=== PATIENT | male | born 1960 | race Caucasian/White ===

== ENCOUNTER 2021-07-29 17:46 | Inpatient (IN) | payer OTHER ==
[~2021-07-29] VITALS: Ht 193 cm; Wt 109.3 kg
[2021-07-29 18:47] LABS: Basophils # (auto) 0 10 ^3/uL (0-0.2); Basophils % (auto) 0.4 % (0.0-2.0); Eosinophils # (auto) 0 10 ^3/uL (0-0.8); Eosinophils % (auto) 0.6 % (0.0-7.0); Hematocrit 32.9 % (41.0-53.0); Hemoglobin 11.5 g/dL (13.5-17.5); Lymphocytes # (auto) 0.8 10 ^3/uL (0.4-5.4); Lymphocytes % (auto) 17.5 % (10.0-50.0); Mean Corpuscular Volume 85.5 fL (80.0-100.0); Monocytes # (auto) 0.3 10 ^3/uL (0-1.3); Monocytes % (auto) 5.7 % (0.0-12.0); Neutrophils # (auto) 3.4 10 ^3/uL (1.6-8.6); Neutrophils % (auto) 75.8 % (37.0-80.0); Nucleated Red Blood Cells % 0.2 %; Red Blood Cells 3.84 10^6/uL (4.5-5.90); Red Cell Distribution Width 13.7 % (11.8-14.3); White Blood Cell 4.5 10^3/uL (4.4-10.8)
[2021-07-29 19:20] LABS: Albumin 1.7 g/dL (3.4-5.0); Anion Gap 10 (5-15); BUN/Creatinine Ratio 10.2; Blood Urea Nitrogen 6 mg/dL (7-18); Carbon Dioxide 26 mmol/L (21-32); Chloride 99 mmol/L (98-107); GFR African American 178 mL/min; GFR Non-African American 147 mL/min; Glucose 93 mg/dL (74-106); Potassium 3.7 mmol/L (3.5-5.1); Sodium 135 mmol/L (136-145)
[2021-07-29 19:23] LABS: Alanine Aminotransferase 12 U/L (16-61); Alkaline Phosphatase 242 U/L (45-117); Aspartate Aminotransferase 29 U/L (15-37); Bilirubin, Total 0.8 mg/dL (0.2-1.0); Total Protein 6.2 g/dL (6.4-8.2)
[2021-07-29 19:54] LABS: Calcium < 5.0 mg/dL (8.5-10.1)
[2021-07-30] MEDS ORDERED: ONDANSETRON HCL 4 MG/2 ML VIAL IV ONE
[2021-07-30] MEDS ORDERED: MECLIZINE HCL 25 MG TAB PO ONE
[2021-07-30] MEDS ORDERED: MORPHINE SULFATE INJECTION 2 MG/ML SYRG IV PRN (06:15)
[2021-07-30] MEDS ORDERED: NITROGLYCERIN 0.4 MG SL TAB SL PRN (06:15)
[2021-07-30] MEDS ORDERED: ALBUTEROL SULF 2.5 MG/0.5ML(0.5%) NEB SOLN NEB PRN (07:00)
[2021-07-30] MEDS ORDERED: IPRATROPIUM BROM 0.5 MG/2.5ML INH SOL NEB PRN (07:00)
[2021-07-30] MEDS ORDERED: ONDANSETRON HCL 4 MG/2 ML VIAL IV PRN (07:00)
[2021-07-30 08:40] LABS: Albumin 1.8 g/dL (3.4-5.0); Potassium 4.2 mmol/L (3.5-5.1)
[2021-07-30 08:43] LABS: BUN/Creatinine Ratio 9.6; Bilirubin, Total 1.2 mg/dL (0.2-1.0)
[2021-07-30 08:52] LABS: Calcium 5.1 mg/dL (8.5-10.1)
[2021-07-30 09:00] VITALS: BP 130/90
[2021-07-30] MEDS ORDERED: CALCIUM GLUC 1,000mg/50ml-NS 50 ML IV SCH (10:00)
[2021-07-30] MEDS ORDERED: FUROSEMIDE 40 MG/4 ML VIAL IV SCH (10:00)
[2021-07-30] MEDS: MAGNESIUM SULFATE 1GM/100ML 100 ML IV SCH ×4 (11:29→16:41)
[2021-07-30] MEDS: FUROSEMIDE 40 MG/4 ML VIAL IV SCH ×2 (11:30→21:51)
[2021-07-30] MEDS: POTASSIUM CHL 20 Meq TABLET PO SCH ×2 (11:30→21:52)
[2021-07-30] MEDS: SPIRONOLACTONE 25 MG TAB PO SCH (11:30)
[2021-07-30] MEDS: PANTOPRAZOLE 40 MG TAB PO SCH (11:31)
[2021-07-30] MEDS: METOPROLOL TARTRATE 25 MG TAB PO SCH ×2 (11:31→21:52)
[2021-07-30] MEDS: MORPHINE SULFATE INJECTION 2 MG/ML SYRG IV PRN ×2 (11:33→21:02)
[2021-07-30 13:00] VITALS: BP 128/79
[2021-07-30] MEDS: ALBUMIN 25% 100 ML IV SCH ×2 (14:50→23:36)
[2021-07-30] MEDS ORDERED: AMIT25TA12 PO (14:58)
[2021-07-30] MEDS ORDERED: METO-159 PO (14:58)
[2021-07-30] MEDS ORDERED: AMLO-489 PO (14:58)
[2021-07-30 17:00] VITALS: BP 130/64
[2021-07-30] MEDS ORDERED: FURO20TA3 PO (18:50)
[2021-07-30] MEDS ORDERED: POTA1TAB61 PO (18:51)
[2021-07-30 19:42] LABS: Magnesium 1.2 mg/dL (1.6-2.6)
[2021-07-30 19:54] LABS: Calcium 5.2 mg/dL (8.5-10.1)
[2021-07-30] MEDS ORDERED: OMEPRAZOLE 20MG/10ML ORAL SUSP PO PRN (20:15)
[2021-07-30] MEDS ORDERED: PANTOPRAZOLE 40 MG TAB PO ONE (20:45)
[2021-07-30 22:00] VITALS: BP 133/82
[2021-07-30] MEDS: CALCIUM GLUC 1,000mg/50ml-NS 50 ML IV SCH (22:43)
[2021-07-31 05:00] VITALS: BP 131/82
[2021-07-31] MEDS: CALCIUM GLUC 1,000mg/50ml-NS 50 ML IV SCH ×3 (05:39→22:16)
[2021-07-31 05:42] LABS: Basophils # (auto) 0.1 10 ^3/uL (0-0.2); Basophils % (auto) 0.9 % (0.0-2.0); Eosinophils # (auto) 0 10 ^3/uL (0-0.8); Eosinophils % (auto) 0.2 % (0.0-7.0); Hematocrit 28.5 % (41.0-53.0); Hemoglobin 10.2 g/dL (13.5-17.5); Lymphocytes # (auto) 0.9 10 ^3/uL (0.4-5.4); Lymphocytes % (auto) 14.5 % (10.0-50.0); Mean Corpuscular Hemoglobin 30.8 pg (28.0-32.0); Mean Corpuscular Hgb Conc. 35.9 g/dL (32.0-36.0); Mean Corpuscular Volume 85.7 fL (80.0-100.0); Monocytes # (auto) 0.4 10 ^3/uL (0-1.3); Neutrophils # (auto) 4.7 10 ^3/uL (1.6-8.6); Neutrophils % (auto) 77.4 % (37.0-80.0); Red Blood Cells 3.32 10^6/uL (4.5-5.90)
[2021-07-31 06:00] LABS: Albumin 2.2 g/dL (3.4-5.0)
[2021-07-31] MEDS: ALBUMIN 25% 100 ML IV SCH (06:31)
[2021-07-31 06:32] LABS: BUN/Creatinine Ratio 13.5; Bilirubin, Total 1.3 mg/dL (0.2-1.0)
[2021-07-31 06:43] LABS: Calcium 5.3 mg/dL (8.5-10.1)
[2021-07-31] MEDS: MORPHINE SULFATE INJECTION 2 MG/ML SYRG IV PRN (06:54)
[2021-07-31 09:00] VITALS: BP 117/77
[2021-07-31] MEDS ORDERED: CALCIUM CARB 500 MG CHEW TAB PO SCH (10:00)
[2021-07-31] MEDS: SPIRONOLACTONE 25 MG TAB PO SCH (10:33)
[2021-07-31] MEDS: FUROSEMIDE 40 MG/4 ML VIAL IV SCH ×2 (10:33→22:15)
[2021-07-31] MEDS: POTASSIUM CHL 20 Meq TABLET PO SCH ×2 (10:34→22:15)
[2021-07-31] MEDS: METOPROLOL TARTRATE 25 MG TAB PO SCH ×2 (10:34→22:16)
[2021-07-31] MEDS: PANTOPRAZOLE 40 MG TAB PO SCH (10:34)
[2021-07-31 13:00] VITALS: BP 117/77
[2021-07-31] MEDS: LACTULOSE 20Gm/30ML SOLN PO SCH ×2 (13:55→22:15)
[2021-07-31 17:00] VITALS: BP 123/87
[2021-07-31 22:00] VITALS: BP 139/86
[2021-08-01 05:00] VITALS: BP 125/85
[2021-08-01 05:30] LABS: Basophils # (auto) 0 10 ^3/uL (0-0.2); Basophils % (auto) 0.4 % (0.0-2.0); Eosinophils # (auto) 0 10 ^3/uL (0-0.8); Eosinophils % (auto) 0.6 % (0.0-7.0); Hematocrit 27.7 % (41.0-53.0); Lymphocytes # (auto) 0.8 10 ^3/uL (0.4-5.4); Lymphocytes % (auto) 16.5 % (10.0-50.0); Mean Corpuscular Hgb Conc. 36.3 g/dL (32.0-36.0); Mean Corpuscular Volume 85.5 fL (80.0-100.0); Monocytes # (auto) 0.4 10 ^3/uL (0-1.3); Monocytes % (auto) 8.1 % (0.0-12.0); Neutrophils # (auto) 3.6 10 ^3/uL (1.6-8.6); Neutrophils % (auto) 74.4 % (37.0-80.0); Red Blood Cells 3.24 10^6/uL (4.5-5.90); Red Cell Distribution Width 13.7 % (11.8-14.3); White Blood Cell 4.9 10^3/uL (4.4-10.8)
[2021-08-01 05:43] LABS: Albumin 2.2 g/dL (3.4-5.0); Potassium 3.2 mmol/L (3.5-5.1)
[2021-08-01 05:48] LABS: BUN/Creatinine Ratio 10.6; Bilirubin, Total 1.2 mg/dL (0.2-1.0)
[2021-08-01 06:03] LABS: Calcium 5.9 mg/dL (8.5-10.1)
[2021-08-01 08:58] LABS: INR 1.34 (0.9-1.15)
[2021-08-01 09:00] VITALS: BP 134/84
[2021-08-01] MEDS ORDERED: POTASSIUM CHL 20 Meq TABLET PO ONE (10:00)
[2021-08-01] MEDS: CALCIUM CARB 500 MG CHEW TAB PO SCH ×2 (10:15→18:56)
[2021-08-01] MEDS: METOPROLOL TARTRATE 25 MG TAB PO SCH (10:47)
[2021-08-01] MEDS: LACTULOSE 20Gm/30ML SOLN PO SCH (10:48)
[2021-08-01] MEDS: FUROSEMIDE 40 MG/4 ML VIAL IV SCH (10:48)
[2021-08-01] MEDS: SPIRONOLACTONE 25 MG TAB PO SCH (10:48)
[2021-08-01] MEDS: POTASSIUM CHL 20 Meq TABLET PO SCH (10:49)
[2021-08-01] MEDS: PANTOPRAZOLE 40 MG TAB PO SCH (10:49)
[2021-08-01] MEDS ORDERED: SPIR25TA PO (11:34)
[2021-08-01 13:00] VITALS: BP 126/85
[2021-08-01] MEDS ORDERED: LIDOCAINE 2%HCL (LOCAL ANESTH.) INJ 10ml MDV ONE (13:50)
[2021-08-01] MEDS ORDERED: ALBUMIN 25% 100 ML IV ONE (17:30)
[2021-08-01] MEDS ORDERED: ALBUMIN 25% 100 ML IV SCH (18:00)
[2021-08-01 22:00] VITALS: BP 122/72
[2021-08-01 22:48] VITALS: BP 122/72
== END 2021-08-01 23:29 | disposition home health service (06) | DRG 433 ==
LOC: ER 17:46 → EDBD 17:46 → OVERFLOW 07-30 06:05 → CENTRAL 07-30 07:36 → TELE-CENTR 07-30 16:15 → OBSVTOIN 08-01 10:58 → CENTRAL 08-01 11:17
PROVIDERS: ADMIT Internal Medicine; ATTEND Hospitalist
PROC: 0W9G3ZZ Drainage of Peritoneal Cavity, Percutaneous Approach (ICD-10-PCS; principal; 2021-08-01)
DX: K70.31 Alcoholic cirrhosis of liver with ascites (principal); N13.30 Unspecified hydronephrosis; S00.03XA Contusion of scalp, initial encounter; R55 Syncope and collapse; I50.9 Heart failure, unspecified; Z88.6 Allergy status to analgesic agent; F17.210 Nicotine dependence, cigarettes, uncomplicated; G62.9 Polyneuropathy, unspecified; I11.0 Hypertensive heart disease with heart failure; J44.9 Chronic obstructive pulmonary disease, unspecified; K21.9 Gastro-esophageal reflux disease without esophagitis; R09.89 Other specified symptoms and signs involving the circulatory and respiratory systems; K72.90 Hepatic failure, unspecified without coma; Z20.822 Contact with and (suspected) exposure to COVID-19; X58.XXXA Exposure to other specified factors, initial encounter; Y93.89 Activity, other specified; Y92.89 Other specified places as the place of occurrence of the external cause; Y99.8 Other external cause status
CPT/HCPCS: 36415; 70450; 71045; 72125; 74150; 76700; 76775; 76942; 80053; 81001; 82040; 82140; 82310; 83690; 83735; 83986; 84484; 85025; 85610; 85730; 86803; 87205; 89051; 93005; 93306; 96365; 96375; 97163; 99291; G0378; J2001; J2405; P9047